=== PATIENT | female | born 1965 | race Hispanic/Latino ===

== ENCOUNTER 2017-06-08 14:54 | Emergency (ER) | payer MEDICARE ==
[2017-06-08] MEDS ORDERED: LIDOCAINE 5% TOPICAL PATCH TP ONE (15:26)
== END 2017-06-08 15:43 | disposition home or self-care (01) ==
LOC: EDH 14:54
DX: B02.9 Zoster without complications (principal); G43.909 Migraine, unspecified, not intractable, without status migrainosus; Z88.8 Allergy status to other drugs, medicaments and biological substances